=== PATIENT | male | born 1990 | race Two or more races ===

== ENCOUNTER 2020-04-02 12:42 | Emergency (ER) | payer SELFPAY ==
[~2020-04-02] VITALS: Ht 154.9 cm; Wt 77.1 kg
[2020-04-02 12:49] VITALS: BP 134/74
[2020-04-02] MEDS ORDERED: TETANUS-DIPTH-ACEL PERTUSSIS 0.5ML SYR Tdap IM ONE (13:15)
[2020-04-02] MEDS ORDERED: ETOMIDATE (2MG/ML) 20ML VIAL IV ONE (13:30)
== END 2020-04-02 15:40 | disposition home or self-care (01) ==
LOC: ER 12:42
DX: T16.2XXA Foreign body in left ear, initial encounter (principal); H60.12 Cellulitis of left external ear
CPT/HCPCS: 10120; 70486; 71250; 90471; 90715; 96374